=== PATIENT | female | born 1985 | race Asian ===

== ENCOUNTER 2023-11-06 09:31 | Inpatient (IN) ==
[2023-11-06] MEDS ORDERED: Lidocaine 1% VIAL 10 MG/ML 30 ML VIAL INJ PRN (09:40)
[2023-11-06 11:48] LABS: Urine Benzodiazepine Screen None Detected (None Detect); Urine Cannabinoids Screen None Detected (None Detect); Urine Opiates Screen None Detected (None Detect)
[2023-11-06] MEDS: miSOPROStol 100 mcg TAB PO ONE ×2 (15:16→20:32)
[2023-11-06] MEDS: Budesonide NEB 0.5 MG/2 ML NEB.SOLN INH SCH (21:17)
[2023-11-06] MEDS: Mometasone 220 MCG MDI INH SCH (22:04)
[2023-11-06] MEDS: Lactated Ringers 1000 ml BAG 1,000 ML IV ONE ×2 (23:06→23:30)
[2023-11-06 23:12] LABS: ABS Eosinophils 0.1 10^3/uL (0.0-0.5); ABS Lymphocytes 0.8 10^3/uL (1.0-4.8); ABS Monocytes 1.2 10^3/uL (0.0-0.9); ABS Neutrophils 16.4 10^3/uL (1.5-7.6); Eosinophil % 0.5 %; Hematocrit 34.1 % (35-45); Hemoglobin 11.6 g/dL (11.5-14.3); Lymphocyte % 4.2 %; Mean Corpuscular Hemoglobin 31.9 pg (27-33); Mean Corpuscular Volume 93.6 fL (80-97); Mean Platelet Volume 9.9 fL (7.5-11.2); Platelet Count 151 10^3/uL (150-450); Red Blood Count 3.65 10^6/uL (3.63-4.92); Red Cell Distribution Width 13.7 % (12-17); White Blood Count 18.5 10^3/uL (3.8-11.8)
[2023-11-06] MEDS: OBEPIDURAL (200 ML) 200 ML EPIDURAL SCH (23:45)
[2023-11-07] MEDS: Phenylephrine 40 mcg/mL 10mL (400mcg) SYRINGE IV PUSH PRN ×2 (00:40→01:06)
[2023-11-07] MEDS: Lactated Ringers 1000 ml BAG 1,000 ML IV SCH (00:52)
[2023-11-07 00:59] LABS: Urine Appearance Turbid; Urine Bilirubin Negative (Negative); Urine Blood 1+ (Negative); Urine Color Yellow; Urine Glucose Negative (Negative); Urine Ketones Trace (Negative); Urine Nitrite Negative (Negative); Urine Protein Trace (Negative); Urine Specific Gravity 1.017 (1.002-1.030); Urine Urobilinogen Negative (Negative); Urine pH 7.5 (5.0-8.0)
[2023-11-07 01:06] LABS: Urine Bacteria Absent /HPF (Absent); Urine Red Blood Cell 1+(3-5/hpf) /HPF (0-Trace); Urine Squamous Epithelial Cell Present /HPF (Absent); Urine White Blood Cell Trace(0-5/hpf) /HPF (0-Trace)
[2023-11-07] MEDS: OBEPIDURAL (200 ML) 200 ML EPIDURAL ONE (02:34)
[2023-11-07] MEDS: Lidocaine 1.5% EPI 1:200,000 30 ML SDV ONE (02:35)
[2023-11-07] MEDS ORDERED: Gentamicin ADULT per pharmacy 1 NOTE MISC FOLLOW UP PRN (04:35)
[2023-11-07] MEDS: Ampicillin ADVAN 2 GM in NS 0.9% 100 ml BAG 100 ML IVPB SCH ×2 (04:47→20:26)
[2023-11-07] MEDS: Gentamicin ADULT 330 MG in NS 0.9% 100 ml BAG 100 ML IVPB SCH (05:18)
[2023-11-07] MEDS ORDERED: Lidocaine 2% w/ EPI 1:200,000 MPF 20 ML SDV VIAL ONE (06:13)
[2023-11-07] MEDS ORDERED: fentaNYL 100 mcg/2 ml 50 MCG/ML VIAL ONE (06:13)
[2023-11-07] MEDS ORDERED: Sodium Bicarbonate 8.4% VIAL 1 MEQ/ML 50 ml VIAL (50 meq) ONE (06:13)
[2023-11-07] MEDS ORDERED: Lidocaine 2% PF 10 ML AMP (OR) ONE (06:15)
[2023-11-07] MEDS ORDERED: Dexamethasone IV 4 MG/ML VIAL 1 ml VIAL ONE (06:16)
[2023-11-07] MEDS ORDERED: Ondansetron 4 mg VIAL 2 MG/ML 2 ml VIAL ONE (06:16)
[2023-11-07] MEDS ORDERED: Sodium Citrate/Citric Acid LIQ 15 ML UDC ONE ×2 (06:28→11:30)
[2023-11-07] MEDS ORDERED: Bupivacaine 0.25% SDV PF 10 ML VIAL INJ ONE (06:41)
[2023-11-07] MEDS ORDERED: Oxytocin 10 UNITS/ML 1 ML VIAL ONE ×3 (06:44→10:35)
[2023-11-07] MEDS ORDERED: Metoclopramide 5 MG/ML VIAL (10 mg) ONE ×2 (06:56→11:30)
[2023-11-07] MEDS ORDERED: Ondansetron 4 mg VIAL 2 MG/ML 2 ml VIAL IV PRN (06:59)
[2023-11-07] MEDS ORDERED: Acetaminophen IV 1 GM/100ML 1,000 MG/100 ML BAG IV PRN (06:59)
[2023-11-07] MEDS ORDERED: Naloxone 0.4 mg VIAL 0.4 mg/ml 1 ml VIAL IV PUSH PRN (06:59)
[2023-11-07] MEDS ORDERED: Metoclopramide 5 MG/ML VIAL (10 mg) IV PRN (06:59)
[2023-11-07] MEDS ORDERED: Morphine PF AMP (0.5MG/ML) 5 MG/10 ML AMP ONE (07:00)
[2023-11-07] MEDS ORDERED: Phenylephrine 40 mcg/mL 10mL (400mcg) SYRINGE ONE ×2 (07:01→10:30)
[2023-11-07] MEDS ORDERED: Witch Hazel PAD JAR TOPICAL PRN (07:30)
[2023-11-07] MEDS ORDERED: Glycerin ADULT 2.4 gm SUPP PR PRN (07:30)
[2023-11-07] MEDS ORDERED: Dibucaine 1% OINT 28.35 GM TUBE PR PRN (07:30)
[2023-11-07] MEDS: Oxytocin in LR 20,000 MILLI.UNIT/1,000 ML BAG IV SCH (07:45)
[2023-11-07] MEDS: Oxytocin in LR 20,000 MILLI.UNIT/1,000 ML BAG IV ONE (07:50)
[2023-11-07] MEDS ORDERED: Lactated Ringers 1000 ml BAG 1,000 ML IV SCH (08:00)
[2023-11-07] MEDS: fentaNYL 100 mcg/2 ml 50 MCG/ML VIAL ONE (10:15)
[2023-11-07] MEDS ORDERED: Propofol 10 MG/ML 20 ML BTL ONE (10:30)
[2023-11-07] MEDS ORDERED: Succinylcholine 200 mg VIAL 20 mg/ml 10 ml VIAL (200 mg) ONE (10:30)
[2023-11-07 10:34] LABS: Hematocrit 25.1 % (35-45); Hemoglobin 8.5 g/dL (11.5-14.3); Mean Corpuscular Hemoglobin 32.1 pg (27-33); Mean Corpuscular Hgb Conc 33.8 g/dL (31-36); Mean Corpuscular Volume 94.8 fL (80-97); Platelet Count 118 10^3/uL (150-450); Red Blood Count 2.65 10^6/uL (3.63-4.92); Red Cell Distribution Width 13.6 % (12-17); White Blood Count 16.7 10^3/uL (3.8-11.8)
[2023-11-07] MEDS ORDERED: KETAMINE HCL 10 MG/ML 20 ml VIAL (200 MG) ONE (10:34)
[2023-11-07 11:07] LABS: Platelet Count 114 10^3/ul (150-450)
[2023-11-07 11:13] LABS: Albumin 2.4 g/dL (3.2-5.2); Albumin/Globulin Ratio 1.1 (1-3); Calcium 7.7 mg/dL (8.6-10.3); Creatinine, Serum 0.42 mg/dL (0.51-0.95); Globulin 2.1 g/dL (2-4); Potassium 3.8 mmol/L (3.5-5.0); Total Bilirubin 0.6 mg/dL (0.2-1.0); Total Protein 4.5 g/dL (6.4-8.9); eGFR CKD-EPI 129.9 (>60)
[2023-11-07] MEDS ORDERED: Midazolam 2 mg/2 ml VIAL 1 mg/ml 2 ml VIAL (2 mg) ONE ×3 (11:30→12:29)
[2023-11-07 11:44] LABS: Hematocrit 28.2 % (35-45); Hemoglobin 9.4 g/dL (11.5-14.3)
[2023-11-07] MEDS: Methylergonovine 0.2 mg AMPULE 1 ml AMP ONE (12:34)
[2023-11-07 13:17] LABS: INR 0.95 (0.83-1.13)
[2023-11-07 13:18] LABS: Activated Partial Thrombo Time 29.3 seconds (26.0-38.0)
[2023-11-07] MEDS: Sodium Citrate/Citric Acid LIQ 15 ML UDC PO ONE (14:42)
[2023-11-07 15:10] LABS: Schistocytes ABSENT
[2023-11-08 00:10] LABS: ABS Lymphocytes 0.5 10^3/uL (1.0-4.8); ABS Monocytes 0.4 10^3/uL (0.0-0.9); ABS Neutrophils 14.4 10^3/uL (1.5-7.6); Eosinophil % 0.2 %; Hematocrit 23.3 % (35-45); Hemoglobin 7.6 g/dL (11.5-14.3); Lymphocyte % 3.6 %; Mean Corpuscular Hemoglobin 30.5 pg (27-33); Mean Corpuscular Hgb Conc 32.7 g/dL (31-36); Mean Corpuscular Volume 93.2 fL (80-97); Mean Platelet Volume 10.1 fL (7.5-11.2); Platelet Count 99 10^3/uL (150-450); Red Cell Distribution Width 14.6 % (12-17); White Blood Count 15.4 10^3/uL (3.8-11.8)
[2023-11-08 14:16] LABS: ABS Eosinophils 0.1 10^3/uL (0.0-0.5); ABS Lymphocytes 0.5 10^3/uL (1.0-4.8); ABS Monocytes 0.5 10^3/uL (0.0-0.9); ABS Neutrophils 19.4 10^3/uL (1.5-7.6); Eosinophil % 0.4 %; Hematocrit 22.5 % (35-45); Hemoglobin 7.7 g/dL (11.5-14.3); Lymphocyte % 2.6 %; Mean Corpuscular Hemoglobin 31.3 pg (27-33); Mean Corpuscular Volume 92.1 fL (80-97); Mean Platelet Volume 9.8 fL (7.5-11.2); Platelet Count 108 10^3/uL (150-450); Red Blood Count 2.45 10^6/uL (3.63-4.92); Red Cell Distribution Width 14.6 % (12-17); White Blood Count 20.6 10^3/uL (3.8-11.8)
[2023-11-08] MEDS: Iron Sucrose 200 MG in NS 0.9% 100 ml IVPB ONE (20:10)
[2023-11-09 12:00] LABS: ABS Basophils 0.1 10^3/uL (0.0-0.1); ABS Eosinophils 0.2 10^3/uL (0.0-0.5); ABS Lymphocytes 0.6 10^3/uL (1.0-4.8); ABS Monocytes 0.4 10^3/uL (0.0-0.9); ABS Neutrophils 12.4 10^3/uL (1.5-7.6); Eosinophil % 1.2 %; Hematocrit 22.1 % (35-45); Hemoglobin 7.4 g/dL (11.5-14.3); Lymphocyte % 4.2 %; Mean Corpuscular Hgb Conc 33.7 g/dL (31-36); Mean Corpuscular Volume 92.2 fL (80-97); Mean Platelet Volume 10.3 fL (7.5-11.2); Platelet Count 121 10^3/uL (150-450); Red Blood Count 2.39 10^6/uL (3.63-4.92); Red Cell Distribution Width 14.6 % (12-17); White Blood Count 13.6 10^3/uL (3.8-11.8)
[2023-11-10 08:14] VITALS: BP 121/77
== END 2023-11-10 14:23 | disposition home or self-care (01) | DRG 540 ==
LOC: MCHOBOUT 09:31 → MCHOB 10:48
PROVIDERS: ADMIT Midwife; ATTEND Obstetrics & Gynecology
PROC: [UNRECOGNIZED PROCEDURE] (2023-11-07 11:55)

== ENCOUNTER 2023-11-14 14:12 | Inpatient (IN) ==
[2023-11-14] MEDS ORDERED: oxyCODONE/Acetamin 5/325 mg TAB PO PRN (14:15)
[2023-11-14 14:53] LABS: Hematocrit 23.5 % (35-45); Hemoglobin 7.8 g/dL (11.5-14.3); Mean Corpuscular Hemoglobin 30.7 pg (27-33); Mean Corpuscular Hgb Conc 33.3 g/dL (31-36); Mean Corpuscular Volume 92.4 fL (80-97); Platelet Count 356 10^3/uL (150-450); Red Blood Count 2.55 10^6/uL (3.63-4.92); Red Cell Distribution Width 14.7 % (12-17)
[2023-11-14 15:32] LABS: ABS Basophils 0.1 10^3/uL (0.0-0.1); ABS Eosinophils 0.2 10^3/uL (0.0-0.5); ABS Lymphocytes 1.1 10^3/uL (1.0-4.8); ABS Monocytes 0.9 10^3/uL (0.0-0.9); ABS Neutrophils 10.8 10^3/uL (1.5-7.6); Eosinophil % 1.4 %; Lymphocyte % 8.3 %; RBC Morphology Normal (Normal)
[2023-11-14] MEDS: cefTRIAXone 2 gm/50 mL D5W 2 GM/50 ML BAG IV SCH (16:11)
[2023-11-14] MEDS: Lactated Ringers 1000 ml BAG 1,000 ML IV SCH ×2 (17:47→20:30)
[2023-11-15 06:42] LABS: ABS Eosinophils 0.3 10^3/uL (0.0-0.5); ABS Lymphocytes 1.1 10^3/uL (1.0-4.8); ABS Monocytes 1.1 10^3/uL (0.0-0.9); ABS Neutrophils 10.4 10^3/uL (1.5-7.6); ABS Nucleated RBC 0.01 10^3/ul; Eosinophil % 2.6 %; Hematocrit 22.9 % (35-45); Hemoglobin 7.7 g/dL (11.5-14.3); Lymphocyte % 8.7 %; Mean Corpuscular Hemoglobin 31.1 pg (27-33); Mean Corpuscular Hgb Conc 33.7 g/dL (31-36); Mean Corpuscular Volume 92.1 fL (80-97); Mean Platelet Volume 8.2 fL (7.5-11.2); Nucleated Red Blood Cells % 0.1 %/100WBC (0.0-0.8); Platelet Count 364 10^3/uL (150-450); Red Blood Count 2.49 10^6/uL (3.63-4.92); Red Cell Distribution Width 14.4 % (12-17); White Blood Count 12.9 10^3/uL (3.8-11.8)
[2023-11-16 06:27] LABS: ABS Basophils 0.1 10^3/uL (0.0-0.1); ABS Eosinophils 0.3 10^3/uL (0.0-0.5); ABS Lymphocytes 1.3 10^3/uL (1.0-4.8); ABS Neutrophils 10.5 10^3/uL (1.5-7.6); ABS Nucleated RBC 0.02 10^3/ul; Eosinophil % 2.2 %; Hematocrit 21.6 % (35-45); Hemoglobin 7.2 g/dL (11.5-14.3); Lymphocyte % 10.1 %; Mean Corpuscular Hemoglobin 30.9 pg (27-33); Mean Corpuscular Hgb Conc 33.6 g/dL (31-36); Mean Corpuscular Volume 92.1 fL (80-97); Mean Platelet Volume 7.9 fL (7.5-11.2); Nucleated Red Blood Cells % 0.1 %/100WBC (0.0-0.8); Platelet Count 403 10^3/uL (150-450); Red Blood Count 2.34 10^6/uL (3.63-4.92); Red Cell Distribution Width 14.4 % (12-17); White Blood Count 13.2 10^3/uL (3.8-11.8)
[2023-11-16] MEDS: metroNIDAZOLE IV 500 MG/100ML 500 MG/100 ML BAG IVPB ONE (13:39)
[2023-11-16 14:38] VITALS: BP 120/75
== END 2023-11-16 17:25 | disposition home or self-care (01) | DRG 561 ==
LOC: SSU 14:12
PROVIDERS: ADMIT Obstetrics & Gynecology; ATTEND Obstetrics & Gynecology